=== PATIENT | male | born 1970 | race Caucasian/White ===

== ENCOUNTER 2017-10-03 22:42 | Emergency (ER) | payer MEDICAID ==
[~2017-10-03] VITALS: Ht 177.8 cm; Wt 77.1 kg
[2017-10-03 22:59] VITALS: BP 128/72
[2017-10-04 00:29] VITALS: BP 128/72
== END 2017-10-04 00:29 | disposition home or self-care (01) ==
LOC: MED 22:42
DX: L02.414 Cutaneous abscess of left upper limb (principal); L03.114 Cellulitis of left upper limb
CPT/HCPCS: 99283

== ENCOUNTER 2017-11-13 12:50 | Emergency (ER) | payer MEDICAID ==
[~2017-11-13] VITALS: Ht 172.7 cm; Wt 77.1 kg
[2017-11-13 12:58] VITALS: BP 131/59
== END 2017-11-13 14:25 | disposition left against medical advice (07) ==
LOC: MED 12:50
DX: M79.89 Other specified soft tissue disorders (principal); Z53.21 Procedure and treatment not carried out due to patient leaving prior to being seen by health care provider

== ENCOUNTER 2017-12-14 03:55 | Emergency (ER) | payer MEDICAID ==
[~2017-12-14] VITALS: Ht 177.8 cm; Wt 77.1 kg
[2017-12-14 03:59] VITALS: BP 139/100
--- NOTE | 2017-12-14 04:08 | NUR ---
AMBULATED TO ER BED 1
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
[2017-12-14 05:11] VITALS: BP 129/95
== END 2017-12-14 05:11 | disposition home or self-care (01) ==
LOC: MED 03:55
DX: S09.90XA Unspecified injury of head, initial encounter (principal); F17.200 Nicotine dependence, unspecified, uncomplicated; V89.9XXA Person injured in unspecified vehicle accident, initial encounter; Y93.55 Activity, bike riding; Y92.488 Other paved roadways as the place of occurrence of the external cause; Y99.8 Other external cause status
CPT/HCPCS: 70450; 99284

== ENCOUNTER 2020-01-04 03:34 | Emergency (ER) | payer MEDICAID ==
[~2020-01-04] VITALS: Ht 177.8 cm; Wt 74.8 kg
--- NOTE | 2020-01-04 03:39 | NUR ---
PT AMBULATED TO ER BED 03
[2020-01-04 03:45] VITALS: BP 138/79
--- NOTE | 2020-01-04 03:50 | NUR ---
PT 49 Y/O MALE BIB SELF FOR C/O THROAT IRRITATION. PT AAO X4. PT STATES,"I DON'T HAVE PAIN BUT I FEEL LIKE MY TONSILLS ARE SWOLLEN." PT DENIES DIFFICULTY SWALLOWING, SOB. RESPIRATIONS ARE EVEN AND UNLABORED. LUNG SOUNDS CLEAR A/P. PT DENIES COUGH. PT DENIES N/V/D. PT RESTING IN BED SITTING UPRIGHT. BED LOCKED AND IN LOWEST POSITION. MEDHX: NONE ALLERGIES: NKA.
--- NOTE | 2020-01-04 04:52 | NUR ---
PT AAO X4, RESPONDS TO VERBAL STMULI. PT RESTING IN BED, WITH EYES CLOSED. RESPIRATIONS ARE EVEN AND UNLABORED. SKIN IS WARM AND DRY TO TOUCH. PT DENIES PAIN AT THIS TIME. BED LOCKED AND IN LOWEST POSITION AT THIS TIME.
[2020-01-04 06:17] LABS: BASOPHILS # (AUTO) 0.1 K/uL (0.00-0.22); BASOPHILS % (AUTO) 0.7 % (0.0-2.0); EOSINOPHILS # (AUTO) 0.5 K/uL (0-0.4); EOSINOPHILS % (AUTO) 5.6 % (0.0-4.0); HEMATOCRIT 43.2 % (36-52); HEMOGLOBIN 15.3 g/dL (12.0-18.0); LYMPHOCYTES # (AUTO) 1.7 K/uL (2.0-11.5); LYMPHOCYTES % (AUTO) 18.4 % (20.5-51.1); MEAN CORPUSCULAR HEMOGLOBIN 31 pg (27-31); MEAN CORPUSCULAR HGB CONC 35 g/dL (33-37); MEAN CORPUSCULAR VOLUME 88.4 fL (80-94); MONOCYTES # (AUTO) 0.9 K/uL (0.8-1.0); MONOCYTES % (AUTO) 10.1 % (1.7-9.3); NEUTROPHILS # (AUTO) 5.9 K/uL (1.8-7.7); NEUTROPHILS % (AUTO) 65.2 % (42.2-75.2); PLATELET COUNT (AUTO) 347 K/uL (140-450); RED BLOOD CELL COUNT(AUTO) 4.89 MIL/uL (4.20-6.10); RED CELL DISTRIBUTION WIDTH 13.8 % (11.6-13.7)
--- NOTE | 2020-01-04 06:20 | NUR ---
GAVE ORDER FOR CT WITH CONTRAST. CONSENT SIGNED BY PT AND ERMD. IV STARTED IN R AC 20G.
[2020-01-04 06:34] LABS: ANION GAP 7.9 (8-16); CARBON DIOXIDE 29.1 mmol/L (21-32); CREATININE 0.9 mg/dL (0.6-1.3)
--- NOTE | 2020-01-04 06:59 | NUR ---
PT TAKEN TO CT VIA W/C. PT ABLE TO AMBULATE TO W/C WITH STEADY GAIT.
--- NOTE | 2020-01-04 07:05 | NUR ---
REPORT GIVEN TO ADDI FRANCISCO BEDSIDE. CONTINUATION OF CARE.
--- NOTE | 2020-01-04 08:34 | NUR ---
Dr. Castellano is re-evaluating the patient at bedside.
[2020-01-04 08:50] VITALS: BP 129/79
== END 2020-01-04 08:48 | disposition home or self-care (01) ==
LOC: MED 03:34
DX: J35.1 Hypertrophy of tonsils (principal); F17.210 Nicotine dependence, cigarettes, uncomplicated
CPT/HCPCS: 36415; 70491; 80048; 85025; 99285; Q9967

== ENCOUNTER 2020-09-18 15:34 | Emergency (ER) | payer MEDICAID ==
[~2020-09-18] VITALS: Ht 172.7 cm; Wt 81.2 kg
[2020-09-18 15:39] VITALS: BP 110/89
--- NOTE | 2020-09-18 15:48 | NUR ---
49 y/o male from home c/o left leg swelling and redness x 2 days. Pt states he had blister on foot that began to become infected. States 8/10 constant pain, worse with ambulation. Noticable redness to foot and lower extremity. Awake and alert. VSS
--- NOTE | 2020-09-18 15:52 | NUR ---
Dr Estrada at bedside examining pt
[2020-09-18] MEDS ORDERED: AMPICILLIN/SULBACTAM 3 GM in NACL 0.9% MINI-BAG PLUS 100 ML IV ONE (15:55)
[2020-09-18] MEDS ORDERED: NACL 0.9% 1,000 ML IV SCH (15:55)
--- NOTE | 2020-09-18 16:04 | NUR ---
Pt refusing IV and IV medications. Dr Estrada made aware
[2020-09-18] MEDS ORDERED: SULFAMETH/TRIMETH DS 800/160MG 1 TAB PO ONE (16:05)
[2020-09-18] MEDS ORDERED: cephALEXin 500 MG CAP PO ONE (16:05)
--- NOTE | 2020-09-18 16:05 | NUR ---
Ultrasound at bedside
--- NOTE | 2020-09-18 16:26 | NUR ---
Lab at bedside for blood draw
[2020-09-18 16:39] LABS: BASOPHILS # (AUTO) 0.1 K/uL (0.00-0.22); BASOPHILS % (AUTO) 0.7 % (0.0-2.0); EOSINOPHILS # (AUTO) 0.2 K/uL (0-0.4); EOSINOPHILS % (AUTO) 2.3 % (0.0-4.0); HEMATOCRIT 42.9 % (36-52); HEMOGLOBIN 14.7 g/dL (12.0-18.0); LYMPHOCYTES # (AUTO) 1.3 K/uL (2.0-11.5); LYMPHOCYTES % (AUTO) 12.4 % (20.5-51.1); MEAN CORPUSCULAR HEMOGLOBIN 32 pg (27-31); MEAN CORPUSCULAR HGB CONC 34 g/dL (33-37); MEAN CORPUSCULAR VOLUME 92.6 fL (80-94); MONOCYTES # (AUTO) 0.7 K/uL (0.8-1.0); MONOCYTES % (AUTO) 7.3 % (1.7-9.3); NEUTROPHILS # (AUTO) 7.9 K/uL (1.8-7.7); NEUTROPHILS % (AUTO) 77.3 % (42.2-75.2); PLATELET COUNT (AUTO) 253 K/uL (140-450); RED BLOOD CELL COUNT(AUTO) 4.64 MIL/uL (4.20-6.10); RED CELL DISTRIBUTION WIDTH 13.3 % (11.6-13.7); WHITE BLOOD COUNT (AUTO) 10.2 K/uL (4.8-10.8)
[2020-09-18 16:50] LABS: ANION GAP 12.8 (8-16); CARBON DIOXIDE 27.1 mmol/L (21-32); CREATININE 0.9 mg/dL (0.6-1.3); POTASSIUM 3.9 mmol/L (3.5-5.1)
[2020-09-18] MEDS ORDERED: APIXABAN 2.5 MG TAB PO SCH (17:20)
--- NOTE | 2020-09-18 17:23 | NUR ---
CALLED PHARMACY FOR MARIO
[2020-09-18 17:31] VITALS: BP 110/89
--- NOTE | 2020-09-18 17:32 | NUR ---
Patient does not wish to proceed with medical care recommended by Dr Estrada. Patient given information related to possible complications, up to and including , which could occur as a result of leaving hospital at this time. Patient verbalizes understanding of risks involved leaving against medical advice. Patient has signed AMA form. Pt states he wants to try to treat at home with medication. Given prescription for Eliquis 5mg, Bactrim 800mg, Keflex 500mg
== END 2020-09-18 17:32 | disposition home or self-care (01) ==
LOC: MED 15:34
DX: L03.116 Cellulitis of left lower limb (principal); R00.0 Tachycardia, unspecified; F17.210 Nicotine dependence, cigarettes, uncomplicated
CPT/HCPCS: 36415; 80048; 85025; 85651; 86140; 87040; 93971; 99284

== ENCOUNTER 2020-09-21 08:01 | Emergency (ER) | payer MEDICAID ==
[~2020-09-21] VITALS: Ht 177.8 cm; Wt 59.0 kg
[2020-09-21 08:09] VITALS: BP 130/75
--- NOTE | 2020-09-21 08:16 | NUR ---
Patient ambulated to bed 4. RN evaluating patient at bedside.
--- NOTE | 2020-09-21 08:20 | NUR ---
Dr. Downing is evaluating the patient at bedside.
--- NOTE | 2020-09-21 08:30 | NUR ---
PT COME TO HOSPITAL FOR FOLLOW UP REGARDING DVT IN LEFT LEG. PT DENIES ANY INCREASED PAIN OR SWELLING. PT AOX4, BREATHING EVEN AND UNLABORED, SKIN WARM AND DRY. BED IN LOWEST POSITION, LOCKED, BED RAIL UPX1. PMH - DVT ALLERGIS - NKA
--- NOTE | 2020-09-21 08:45 | NUR ---
Dr. Downing and Dr. Pedroza are evaluating the patient at bedside.
--- NOTE | 2020-09-21 09:30 | NUR ---
Patient discharged with v/s stable. Written and verbal after care instructions about deep vein thrombosis given and explained. Patient verbalized understanding. Ambulatory with steady gait. All questions addressed prior to discharge. Advised to follow up with PMD.
[2020-09-21 09:46] VITALS: BP 130/75
== END 2020-09-21 09:30 | disposition home or self-care (01) ==
LOC: MED 08:01
DX: I82.402 Acute embolism and thrombosis of unspecified deep veins of left lower extremity (principal); R03.0 Elevated blood-pressure reading, without diagnosis of hypertension; F17.290 Nicotine dependence, other tobacco product, uncomplicated; F15.90 Other stimulant use, unspecified, uncomplicated; Z71.6 Tobacco abuse counseling
CPT/HCPCS: 99281